=== PATIENT | male | born 2000 | race Caucasian/White ===

== ENCOUNTER 2020-01-17 19:16 | Inpatient (IN) | payer BC, MEDICAID, SELFPAY ==
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
[2020-01-17 19:31] VITALS: BP 119/62; PULSE 100; RESP 20; TEMP 36.7; O2SAT 99
[2020-01-17] MEDS: diphenhydrAMINE 50 MG/ML VIAL 25 MG IVP (20:00)
[2020-01-17] MEDS: Haloperidol 5 MG/ML VIAL 4 MG IM (20:00)
[2020-01-17] MEDS: Midazolam 2 MG/2 ML VIAL IVP (20:01)
[2020-01-17 20:04] LABS: Absolute Basophil Count 0.01 k/cumm (0.0-0.2); Absolute Eosinophil Count 0.14 k/cumm (0.0-0.7); Absolute Lymphocyte Count 1.29 k/cumm (1.2-3.4); Absolute Monocyte Count 0.36 k/cumm (0.11-0.7); Basophils % 0.2; Eosinophils % 2.7; HCT 43.5 % (40.0-50.0); HGB 14.9 g/dL (13.5-17.5); Lymphocytes % 24.8; Mean Corp. HGB Concentration 34.3 g/dL (32.0-36.0); Mean Corpuscular Volume 87.5 fL (80-95); Mean Platelet Volume 9.7 fL (8.0-11.0); Monocytes % 6.9; Neutrophils % 65.4; Platelet Count 174 x1000/uL (130-400); RBC 4.97 m/cumm (4.50-6.00); RBC Distribution Width 11.6 % (11.8-14.1)
--- NOTE | 2020-01-17 20:13 | DI.CT_ITS ---
EXAM: CT HEAD WO CLINICAL HISTORY: altered mentation. TECHNIQUE: Imaging Protocol: Axial computed tomography images with coronal and sagittal reformatted images were created and reviewed COMPARISON: No exams were available for comparison FINDINGS: The ventricular system is normal in appearance. No evidence of acute intracranial hemorrhage, mass effect, or midline shift. The orbital structures are unremarkable. The temporal bone structures appear intact. Calvarium: Normal. Visualized Paranasal sinuses/Mastoids: Clear. IMPRESSION: Normal cranial CT. RADIATION DOSE DELIVERED: Total DLP DATA REPOSITORY: All CT scans at this facility are submitted to the National Radiology Data Registry (NRDR) Dose Index Registry (DIR) with the [employer] (ACR). RADIATION OPTIMIZATION: All CT scans at this facility use at least one of these dose optimization te chniques: automated exposure control; mA and/or kV adjustment per patient size (includes targeted exa ms where dose is matched to clinical indication); or iterative reconstruction.
--- NOTE | 2020-01-17 20:15 | RT.EKG_ITS ---
APPROVED REPORT Exam: Resting ECG Patient Location: E HR:65 bpm ECG Measurements Heart Rate 65 AXIS VA 120 P 38 QRSd 85 QRS 76 QT 356 T 124 QTc 371 <Conclusion> Sinus rhythm...normal P axis, V-rate 60- 99 Nonspecific T abnormalities, lateral leads...T <-0.10mV, I aVL V5 V6 nondiagnostic
--- NOTE | 2020-01-17 20:22 | DI.VRAD_ITS ---
PROCEDURE INFORMATION: Exam: CT Head Without Contrast Exam date and time: 01/17/2020 7:22 PM Age: 20 years old Clinical indication: Other: Altered mentation TECHNIQUE: Imaging protocol: Computed tomography of the head without contrast. Radiation optimization: All CT scans at this facility use at least one of these dose optimization techniques: automated exposure control; mA and/or kV adjustment per patient size (includes targeted exams where dose is matched to clinical indication); or iterative reconstruction. COMPARISON: No relevant prior studies available. FINDINGS: Brain: Normal. No hemorrhage. Unremarkable white matter. No mass effect. Ventricles: Normal. No ventriculomegaly. Bones/joints: Unremarkable. No acute fracture. Sinuses: Visualized sinuses are unremarkable. No fluid levels. Mastoid air cells: Visualized mastoid air cells are well aerated. Soft tissues: Unremarkable. IMPRESSION: No evidence for acute intracranial abnormality . Dictated and Authenticated by: Kiara Castro MD. Ordering:BHAVANA Marinelli MD
--- NOTE | 2020-01-17 20:25 | PDOC.CMSAFED ---
- If Service Date Differs Date of service: 01/17/20 Time of Service: 20:25 Care Management Safety Plan Russell is a 20 year old male brought in by Connie presenting in a catatonic state per provider. Russell has a know history of violent behaviors, elopement and diagnosis with schizophrenia and poor compliance. 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 He currently is not receiving any services as an outpatient. Russell is involuntary at this time and is in the custody of department of mental health due to involuntary status. Safety plan has been established with the care team, to adhere to patient goals, identify restrictions based on behavioral status, address nutrition, and determine allowed personal belongings, tools for hygiene and personal care. Determine level of activity including ambulation, level of supervision, visitors, and determine privileges based on behaviors and level of engagement by pt. SAFETY PLAN: 1. Will remain on suicide precautions and in paper clothes. 2. Will remain in room under direct supervision of one-on-one staff at all times provided by CPSO, DRAW FRAME OPERATOR, OPTOELECTRONICS ENGINEER explosive operator supervisor. 3. May have paper cups, plates, finger foods as well as a cardboard spoon with which to eat meals. 4. Follow [facility] Management of the Admitted Behavioral Health Patient policy. 5. Comfort wipes only. 6. No personal belongings 7. Visitors: No visitors at this time. 8. Activities: Television if available and coloring and crayons at the discretion of the care team. 8. Telephone: No telephone privileges at this time. 9. Due to INVOLUNTARY status, Russell may not leave [facility] unless transferred to a psychiatric facility in the [facility]. Russell is in the custody of department of mental health due to involuntary status. If deemed appropriate for inpatient psychiatric care, safety plan will be established with patient, and care team, to adhere to patient goals, identify restrictions based on behavioral status, address nutrition, and determine allowed personal belongings, tools for hygiene and personal care. As well plan will determine level of activity including ambulation, level of supervision, visitors, and determine privileges based on level of acuity, behaviors and level of engagement by patient.
[2020-01-17 20:28] VITALS: BP 145/75; TEMP 36.7
[2020-01-17 20:31] LABS: ALT 20 U/L (16-63); AST 11 U/L (15-37); Albumin 3.9 g/dL (3.4-5.0); Alkaline Phosphatase 87 U/L (46-116); Anion Gap 10.2 mmol/L (3-11); BUN 13 mg/dL (7-18); Bilirubin, Total 0.9 mg/dL (0.2-1.0); CO2 26.8 mmol/L (21.0-32.0); CREATININE 1.18 mg/dL (0.70-1.30); Calcium 9.1 mg/dL (8.5-10.1); Chloride 103 mmol/L (98-107); Creatine Kinase 45 U/L (39-308); Glucose 97 mg/dL (74-106); Potassium 3.5 mmol/L (3.5-5.1); Sodium 140 mmol/L (136-145); TSH (W/Ref FT4) 0.96 uIU/mL (0.36-3.74); Total Protein 7.2 g/dL (6.4-8.2)
[2020-01-17 20:34] LABS: Troponin I < 0.05 ng/mL (<0.06)
[2020-01-17 21:05] LABS: ETHANOL BLOOD < 3.0 mg/dL (<3)
[2020-01-17 21:10] VITALS: BP 121/73; PULSE 69; PULSE 74; RESP 20; O2SAT 99
[2020-01-17 21:34] LABS: Bilirubin Small (Negative); Blood Negative (Negative); Clarity Clear (Clear); Glucose Negative (Negative); Ketones 40 mg/dL (Negative); Leukocyte Esterase Negative (Negative); Nitrite Negative (Negative); Specific Gravity >= 1.030 (1.005-1.025)
[2020-01-17] MEDS: DEXTROSE 5%-0.45% SALINE 1,000 ML 150 ML IV (21:45)
[2020-01-17 22:00] VITALS: BP 121/73; PULSE 74; RESP 20; TEMP 36.7
[2020-01-17 22:04] LABS: *AMPHETAMINES SCREEN URINE Negative (Negative); *BARBITURATES SCREEN URINE Negative (Negative); *BENZODIAZEPINES SCREEN URINE POSITIVE (Negative); Cannabinoids THC POSITIVE (Negative); Cocaine Screen,Urine Negative (Negative); METHADONE URINE SCREEN Negative (Negative); OPIATES URINE SCREEN Negative (Negative)
[2020-01-17 22:05] LABS: Tricyclic Antidepressants Negative (Negative)
[2020-01-17 23:00] VITALS: BP 121/73; PULSE 74; RESP 20; TEMP 36.7
--- NOTE | 2020-01-18 08:15 | NUR.NOTE ---
Nursing Note:- Food order per patient requested
--- NOTE | 2020-01-18 10:41 | NUR.NOTE ---
S[place]mill Moulder Operator spoke with patients mother on the phone who is on HIPAA consent she states patient has not been on any medications x 2 years. Lives alone and family brings him meals. Mother states he cannot care for himself.
--- NOTE | 2020-01-18 11:51 | NUR.NOTE ---
Patient now has CPSO
[2020-01-18 12:00] VITALS: BP 121/73; PULSE 74; RESP 20; TEMP 36.7
[2020-01-18 13:37] LABS: COVID-19 RT-PCR UVMMC Result Negative (Negative)
--- NOTE | 2020-01-18 14:55 | PDOC.MHCN ---
Date of service: 01/18/20 Time of Service: 14:30 Mental Health Crisis Note Presenting Issue How did you arrive at the ED and why did you come: Clt came in via MH Warrant for MH eval. Precipitating Factors Clt denies any SI or HI but clt came in because he was not meeting minimum health requirements by not drinking enough water and eating food. Clt has lost a substantial amount of weight. He has been barricading himself in his trailer. Clt minimized his behavior throughout the discussion. Disposition BEHAVIOR: Guarded EYE CONTACT: intermittent MOOD: Pleasant AFFECT: Liable APPETITE: Poor SLEEP(trouble falling/staying asleep: Yes inidividuleigh has been sleeping for long periods of time. Plan The plan is to have the second certification substantiated and placed in a secure psychiatric unit to help cljamie deal with his mental health crisis.
--- NOTE | 2020-01-18 15:12 | CMSP_ITS ---
- If Service Date Differs Date of service: 01/18/20 Time of Service: 15:12 Care Management Safety Plan Russell remains at [facility], awaiting an involuntary psychiatric placement. Thus far today, he has been calm and cooperative. When CM comes to meet with him, he greets me with Hi. My name is Russell Mejia. He answers some questions asked of him, but at other times he just blankly stares and does not reply. He reports doing well and is appreciative of CM explaining the EE process to him. Russell was evaluated by [facility] screener, earlier today. He engaged in the evaluation, but his behavior was described as guarded. A Second Certification by Psychiatrist will occur at some point this evening. At this time, there have been no bed offers. Safety plan has been established with the care team, to adhere to patient goals, identify restrictions based on behavioral status, address nutrition, and determine allowed personal belongings, tools for hygiene and personal care. Determine level of activity including ambulation, level of supervision, visitors, and determine privileges based on behaviors and level of engagement by pt. SAFETY PLAN: 1. Will remain on suicide precautions and in paper clothes. 2. Will remain in room under direct supervision of one-on-one staff at all times provided by CPSO, DISTRICT COURT BAILIFF, COMMUNITY COORDINATOR computer aided design operator. 3. May have paper cups, plates, finger foods as well as a cardboard spoon with which to eat meals. 4. Follow [facility] Management of the Admitted Behavioral Health Patient policy. 5. Comfort wipes only. 6. No personal belongings 7. Visitors: No visitors at this time. 8. Activities: Television if available and coloring and crayons at the discretion of the care team. 8. Telephone: No telephone privileges at this time. 9. Due to INVOLUNTARY status, Russell may not leave [facility] unless transferred to a psychiatric facility in the [facility]. Russell is in the custody of department of mental health due to involuntary status. If deemed appropriate for inpatient psychiatric care, safety plan will be established with patient, and care team, to adhere to patient goals, identify restrictions based on behavioral status, address nutrition, and determine allowed personal belongings, tools for hygiene and personal care. As well plan will determine level of activity including ambulation, level of supervision, visitors, and determine privileges based on level of acuity, behaviors and level of engagement by patient.
[2020-01-18 17:47] VITALS: BP 115/72; PULSE 122; RESP 16; TEMP 37.1; O2SAT 95
[2020-01-18 17:58] VITALS: PULSE 90
--- NOTE | 2020-01-18 20:35 | CMPROGNOTE_ITS ---
- If Service Date Differs Date of service: 01/18/20 Time of Service: 20:35 Care Management Progress Note Russell was interviewed by Dr. Minoo Wang via video call. CM also participated in the call. Dr. Wang determined that Russell should remain in involuntary status and approved the second certification. Russell stated that he did not feel that he needed to be hospitalized and that as an adult, he was able to care for himself. He will remain at [facility] in involuntary status until placement in a psychiatric facility can be secured.
--- NOTE | 2020-01-18 21:10 | PDOC.MHCN ---
Date of service: 01/18/20 Time of Service: 21:13 Mental Health Crisis Note Presenting Issue How did you arrive at the ED and why did you come:
[2020-01-19 06:30] VITALS: BP 120/83; PULSE 98; RESP 16; TEMP 36.6; O2SAT 97
--- NOTE | 2020-01-19 06:43 | NUR.NOTE ---
Pt up to BR, changed into new paper scrubs, non-skid socks. Bed linens changed. Provided with regine gaines. alert, appropriate, calm with staff.
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
--- NOTE | 2020-01-19 14:59 | PDOC.MHCN ---
Date of service: 01/19/20 Time of Service: 14:00 Mental Health Crisis Note Presenting Issue How did you arrive at the ED and why did you come: Client came in via MH Warrant for MH eval. Precipitating Factors This screener assessed the client via zoom this afternoon. The client was somewhat reluctant to engage. When asked if he was feeling suicidal he could not give a straightforward answer. Denied HI. When asked where his thoughts were at today he replied 'nowhere'. He shared he had dreamt about toads last night. He said it was 'a psychedelic dream'. When asked if he was feeling resistant to engage he responded with a nonsensical answer. Disposition BEHAVIOR: Appropriate EYE CONTACT: Good MOOD: Apathetic AFFECT: Animated but smug APPETITE: N/A SLEEP(trouble falling/staying asleep: Slept well--dreamt about toads. Plan Client will remain on involuntary status. Sabrnia Wei [facility] to continue follow up with hospitals and placement. Signature Clinician's Name/Title: Betito Chacon BA (Ana) [facility]
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
[2020-01-19 17:01] VITALS: BP 122/95; PULSE 108; RESP 15; TEMP 37; O2SAT 98
[2020-01-19 18:15] VITALS: BP 107/74; PULSE 111; RESP 16; TEMP 36.5; O2SAT 98
--- NOTE | 2020-01-19 18:52 | PDOC.CMSAFE ---
- If Service Date Differs Date of service: 01/19/20 Time of Service: 18:52 Care Management Safety Plan INVOLUNTARY FOR INPATIENT PSYCHIATRIC STABILIZATION. Safety plan has been established to meet the needs of the patient, and consideration of the care team, to adhere to patient goals, identify restrictions based on behavioral status, address nutrition, and determine allowed personal belongings, tools for hygiene and personal care. Determine level of activity including ambulation, level of supervision, visitors, and determine privileges based on behaviors and level of engagement by pt. SAFETY PLAN: 1. Will remain on SI/HI precautions. In Paper Clothes 2. Will remain in room under direct supervision of one-on-one staff at all times provided by CPSO; AMERICA, CLOTH BLEACHING RANGE TENDER harvesting contractor. 3. May have paper cups, plates, finger foods as well as a cardboard spoon 4. Follow [facility] Management of the Admitted Behavioral Health Patient policy. 5. Comfort bath system only. 6. No personal belongings 7. Visitors-none at this time 8. Activities: may watch tv, crayons, coloring book, paper, books 9. Bathroom privileges with supervision 10. Phone: None at this time 11. Due to INVOLUNTARY status, if patient wishes to leave [facility], the [facility] transportation maintenance worker must be contacted to re-evaluate patient prior to patient exiting the building. Patient is currently involuntarily at [facility] and seeking inpatient admission when a bed becomes available. [facility] Frontline Sausage Wrapper will continue seeking placement. Please contact the [employer] Professor Plisse Machine Operator Helper ([phone]) and [facility] Sausage Wrapper ([phone]) for any needed changes in the Safety Plan. Safety plan [facility] been provided [facility]
--- NOTE | 2020-01-19 18:55 | CMPROGNOTE_ITS ---
- If Service Date Differs Date of service: 01/19/20 Time of Service: 18:55 Care Management Progress Note S/O: Russell is a 20 year old young man admitted to [facility] after being found by police to be in a state of self neglect. His home was unkept, there was no food supply evident and Russell had not been outside his home in some time, as far as it could be determined. He has a history of schizophrenia and has had community support and resources in the past but has not been compliant with his care and has not been connected with any mental health services for over a year. Per Russell, it may be longer than that. Today Russell was cooperative but minimally engaged. When Sabrina Wilde, [facility] screener met with him, he refused to answer any of her questions. The only slight response was a smirk when she asked him if he had homicidal thoughts. Later Russell was screened by an [facility] QMHP, Betito. This time he engaged a bit more and answered questions. Denied SI or HI. When asked to describe how he was feeling, he said, like broken glass, then like melted candle wax. Russell did not eat any breakfast ot lunch today and drank very little. The ED staff encouraged him to drink more fluids. Per report, Russell has lost weight recently and has not been eating. Updated information was sent to [facility] today, including his Covid test results. Russell is involuntary at this time and is in the custody of department of mental health due to involuntary status. Safety plan has been established with the care team, to adhere to patient goals, identify restrictions based on behavioral status, address nutrition, and determine allowed personal belongings, tools for hygiene and personal care. Determine level of activity including ambulation, level of supervision, visitors, and determine privileges based on behaviors and level of engagement by pt. SAFETY PLAN: 1. Will remain on suicide precautions and in paper clothes. 2. Will remain in room under direct supervision of one-on-one staff at all times provided by CPSO, AMERICA, CLINICAL CARE COORDINATOR commercial field inspector. 3. May have paper cups, plates, finger foods as well as a cardboard spoon with which to eat meals. 4. Follow [facility] Management of the Admitted Behavioral Health Patient policy. 5. Comfort wipes only. 6. No personal belongings 7. Visitors: No visitors at this time. 8. Activities: Television if available and coloring and crayons at the discretion of the care team. 8. Telephone: No telephone privileges at this time. 9. Due to INVOLUNTARY status, Russell may not leave [facility] unless transferred to a psychiatric facility in the [facility]. Russell is in the custody of department of mental health due to involuntary status.
[2020-01-19] MEDS: QUEtiapine 25 MG TAB PO (21:21)
[2020-01-19] MEDS: diphenhydrAMINE 25 MG CAP PO (21:21)
[2020-01-20] MEDS: QUEtiapine 25 MG TAB PO ×3 (11:56→23:00)
--- NOTE | 2020-01-20 13:30 | W.PM.PROGNOT ---
Date of Service Date of service: 01/20/20 Time of Service: 13:30 Assessment and Plan Assessment and plan (1) Acute psychosis: Start date: 01/20/20 Start time: 13:34 Status: Acute Assessment and plan: cooperative overnight. No outbursts. Prefers bed be on floor. Coloring. When asked what he is going to do with the pictures he states burn them. Then continues to color. 1:1 observer with patient. Awaiting psych bed at facility CM arranging. (2) Schizophrenia: Status: Acute Assessment and plan: See above. Above case discussed with Dr. Alfred who is in agreement. Subjective Subjective Patient reports: no new complaints Interval history since last seen: Coloring in room. Standing at window. Drinking from cup. Does not make eye contact. Does not answer direct questions. Exam Const General: no acute distress and other (dishelveled) Nutritional Appearance: thin Orientation: other Resp Effort & Inspection: normal respiratory effort and able to speak in complete sentences Auscultation: clear to auscultation bilaterally Cardio Rate: regular rate GI Inspection: normal to inspection Palpation: soft Auscultation: normal bowel sounds Psych Appearance: disheveled Mental Status: other Mood: other Affect: labile affect Attitude: avoids eye contact Thought Process: other Thought Content: ideas of reference Insight: fair Judgment: fair Objective Objective Clinical Data: Vital Signs Temperature 36.5 C 01/19/20 18:15 Temperature Source Tympanic 01/19/20 18:15 Pulse 111 H 01/19/20 18:15 Pulse Rhythm Regular 01/19/20 17:55 Pulse 69 01/17/20 21:10 Respiratory Rate 16 01/19/20 18:15 Respiratory Effort Non-Labored 01/19/20 17:55 Respiratory Depth Normal 01/19/20 17:55 Respiratory Pattern Normal 01/19/20 17:55 Blood Pressure 107/74 01/19/20 18:15 Blood Pressure Mean 84 01/17/20 21:10 Blood Pressure Position Supine 01/17/20 19:31 Pulse Oximetry 98 01/19/20 18:15 Oxygen Delivery Method Room Air 01/19/20 18:15 Oxygen Flow Rate 0 01/19/20 18:15 Pain Level 0 01/19/20 18:15 Comment 01/20/20 01:24 Laboratory Results WBC 5.20 k/cumm (4.4-10.8) 01/17/20 19:52 RBC 4.97 m/cumm (4.50-6.00) 01/17/20 19:52 Hgb 14.9 g/dL (13.5-17.5) 01/17/20 19:52 Hct 43.5 % (40.0-50.0) 01/17/20 19:52 MCV 87.5 fL (80-95) 01/17/20 19:52 MCH 30.0 pg (27.0-33.0) 01/17/20 19:52 MCHC 34.3 g/dL (32.0-36.0) 01/17/20 19:52 RDW 11.6 % (11.8-14.1) L 01/17/20 19:52 Plt Count 174 x1000/uL (130-400) 01/17/20 19:52 MPV 9.7 fL (8.0-11.0) 01/17/20 19:52 Immature Gran % 0.0 % 01/17/20 19:52 Neutrophils % 65.4 01/17/20 19:52 Lymphocytes % 24.8 01/17/20 19:52 Monocytes % 6.9 01/17/20 19:52 Eosinophils % 2.7 01/17/20 19:52 Basophils % 0.2 01/17/20 19:52 Absolute Neutrophils 3.40 k/cumm (1.2-6.7) 01/17/20 19:52 Absolute Lymphocytes 1.29 k/cumm (1.2-3.4) 01/17/20 19:52 Absolute Monocytes 0.36 k/cumm (0.11-0.7) 01/17/20 19:52 Absolute Eosinophils 0.14 k/cumm (0.0-0.7) 01/17/20 19:52 Absolute Basophils 0.01 k/cumm (0.0-0.2) 01/17/20 19:52 Sodium 140 mmol/L (136-145) 01/17/20 19:52 Potassium 3.5 mmol/L (3.5-5.1) 01/17/20 19:52 Chloride 103 mmol/L (98-107) 01/17/20 19:52 Carbon Dioxide 26.8 mmol/L (21.0-32.0) 01/17/20 19:52 Anion Gap 10.2 mmol/L (3-11) 01/17/20 19:52 BUN 13 mg/dL (7-18) 01/17/20 19:52 Creatinine 1.18 mg/dL (0.70-1.30) 01/17/20 19:52 Estimated GFR/1.73 m2 >= 60.00 (mL/min/1.73m2) 01/17/20 19:52 Glucose 97 mg/dL (74-106) 01/17/20 19:52 Calcium 9.1 mg/dL (8.5-10.1) 01/17/20 19:52 Total Bilirubin 0.9 mg/dL (0.2-1.0) 01/17/20 19:52 AST 11 U/L (15-37) L 01/17/20 19:52 ALT 20 U/L (16-63) 01/17/20 19:52 Alkaline Phosphatase 87 U/L (46-116) 01/17/20 19:52 Creatine Kinase 45 U/L (39-308) 01/17/20 19:52 Troponin I < 0.05 ng/mL (<0.06) 01/17/20 19:52 Total Protein 7.2 g/dL (6.4-8.2) 01/17/20 19:52 Albumin 3.9 g/dL (3.4-5.0) 01/17/20 19:52 TSH 0.96 uIU/mL (0.36-3.74) 01/17/20 19:52 Urine Color Yellow (Yellow) 01/17/20 21:25 Urine Clarity Clear (Clear) 01/17/20 21:25 Urine pH 6.0 (5-8) 01/17/20 21:25 Ur Specific [place] >= 1.030 (1.005-1.025) H 01/17/20 21:25 Urine Protein Negative mg/dL (Negative) 01/17/20 21:25 Urine Ketones 40 mg/dL (Negative) H 01/17/20 21:25 Urine Blood Negative (Negative) 01/17/20 21:25 Urine Nitrite Negative (Negative) 01/17/20 21:25 Urine Bilirubin Small (Negative) H 01/17/20 21:25 Urine Urobilinogen 1.0 EU/dL (Up TO 0.2) H 01/17/20 21:25 Ur Leukocyte Esterase Negative (Negative) 01/17/20 21:25 Urine Glucose Negative mg/dL (Negative) 01/17/20 21:25 Urine Opiates Screen Negative (Negative) 01/17/20 21:25 Urine Methadone Screen Negative (Negative) 01/17/20 21:25 Ur Barbiturates Screen Negative (Negative) 01/17/20 21:25 Ur Tricyclics Screen Negative (Negative) 01/17/20 21:25 Ur Amphetamines Screen Negative (Negative) 01/17/20 21:25 U Benzodiazepines Scrn Positive (Negative) A 01/17/20 21:25 Urine Cocaine Screen Negative (Negative) 01/17/20 21:25 Ur THC Screen Positive (Negative) A 01/17/20 21:25 Ethyl Alcohol < 3.0 mg/dL (<3) 01/17/20 19:52 COVID-19 PCR Negative (Negative) 01/17/20 22:40 Nasopharyn COVID-19 PCR Not Applicable 01/17/20 22:40 Ref Test Perform Site [facility] lab 01/17/20 22:40
--- NOTE | 2020-01-20 14:16 | PDOC.MHCN_ITS ---
Date of service: 01/20/20 Time of Service: 13:25 Mental Health Crisis Note Presenting Issue How did you arrive at the ED and why did you come: Client came in via [facility] for MH eval. Precipitating Factors This screener assessed the client via zoom. The client was in his room drawing on the register near the window when the conversation started. He said he was drawing chairs and couches. When asked if he was suicidal or homicidal he said he wanted to sit on a couch and enjoy the view out of his window. When the question was rephrased as 'do you feel like hurting yourself or anyone else?' he responded, 'I might step on an ant if I saw one but that's about it.' He mentioned feeling physically 'weird'. He mentioned he had taken medication and it was the first time in a 'long, long, long, long, long, long, long, long, long, long, long time'. When asked what home was like before he was in the hospital he said that it was 'radical' He said what made it radical was being able 'F around' and chryslers'. Very nonsensical at times. Appeared mentally distracted and unable to appropriately engage. Disposition BEHAVIOR: Client appeared distracted, standing at window drawing pictures. EYE CONTACT: Poor MOOD: Pleasant AFFECT: animated, smug APPETITE: It was reported to this screener he ate last night. SLEEP(trouble falling/staying asleep: Unknown, unclear answer from client. Plan Client will remain on involuntary status. MASSIMO Zaldivar [facility] to continue follow up with hospitals and placement. Signature Clinician's Name/Title: Betito Chacon BA (Ana) [facility]
--- NOTE | 2020-01-20 17:59 | PDOC.CMPRO ---
- If Service Date Differs Date of service: 01/20/20 Time of Service: 17:59 Care Management Progress Note S/O: Russell is a 20 year old young man admitted to [facility] after being found by police to be in a state of self neglect. His home was unkept, there was no food supply evident and Russell had not been outside his home in some time, as far as it could be determined. He has a history of schizophrenia and has had community support and resources in the past but has not been compliant with his care and has not been connected with any mental health services for over a year. Per Russell, it may be longer than that. Today Russell was cooperative but minimally engaged. When screened by an [facility], Betito (via Zoom), he was responsive to questions asked and maintained some degree of eye contact, although at times his eyes shifted off into space as though he were being distracted. He essentially denied SI/HI but admitted he might step on an ant. Unlike yesterday, today Russell was up and about in his room. He was standing and drawing and coloring pictures on the windowsill when CM and QMHP entered the room. He had done at least 5 pictures prior to the visit. Per report, Russell ate 2 sandwiches for dinner last night and his liquid intake has improved as well. A referral was sent to [facility] today, however they declined the referral stating that it did not look like a good fit at this time. [facility] did not have the ability to accept an involuntary admission. Russell will remain at [facility] in involuntary status at this time in the custody of Department of Mental Health.. Safety plan has been established with the care team, to adhere to patient goals, identify restrictions based on behavioral status, address nutrition, and determine allowed personal belongings, tools for hygiene and personal care. Determine level of activity including ambulation, level of supervision, visitors, and determine privileges based on behaviors and level of engagement by ptIsacc Morgan held with USAMA Jones, [facility] Bet[facility], nurse Nieves. SAFETY PLAN: 1. Will remain on suicide precautions and in paper clothes. 2. Will remain in room under direct supervision of one-on-one staff at all times provided by CPSO, AUTOMATIC FOLDER SEAMER, CARTON GLUING MACHINE OPERATOR tailings dam laborer. 3. May have paper cups, plates, finger foods as well as a cardboard spoon with which to eat meals. 4. Follow [facility] Management of the Admitted Behavioral Health Patient policy. 5. May shower with close supervision. 6. No personal belongings 7. Visitors: No visitors at this time. 8. Activities: Television if available and coloring book, paper and crayons at the discretion of the care team. 8. Telephone: No telephone privileges at this time. 9. Due to INVOLUNTARY status, Russell may not leave [facility] unless transferred to a psychiatric facility in the [facility]. Russlel is in the custody of department of mental health due to involuntary status.
--- NOTE | 2020-01-20 18:12 | PDOC.CMSAFE ---
- If Service Date Differs Date of service: 01/20/20 Time of Service: 18:12 Care Management Safety Plan Safety plan has been established with the care team, to adhere to patient goals, identify restrictions based on behavioral status, address nutrition, and determine allowed personal belongings, tools for hygiene and personal care. Determine level of activity including ambulation, level of supervision, visitors, and determine privileges based on behaviors and level of engagement by pt. Huddle held with CC Martita, USAMA Huitron, [facility] Betito, nurse Nieves. SAFETY PLAN: 1. Will remain on suicide precautions and in paper clothes. 2. Will remain in room under direct supervision of one-on-one staff at all times provided by CPSO, SEAT COVER CUTTER, INDUSTRIAL/ORGANIZATIONAL PSYCHOLOGIST family service caseworker. 3. May have paper cups, plates, finger foods as well as a cardboard spoon with which to eat meals. 4. Follow [facility] Management of the Admitted Behavioral Health Patient policy. 5. May shower with close supervision. 6. No personal belongings 7. Visitors: No visitors at this time. 8. Activities: Television if available and coloring book, paper and crayons at the discretion of the care team. 8. Telephone: No telephone privileges at this time. 9. Due to INVOLUNTARY status, Russell may not leave [facility] unless transferred to a psychiatric facility in the [facility]. Russell is in the custody of department of mental health due to involuntary status. cc:
[2020-01-20] MEDS: diphenhydrAMINE 25 MG CAP PO (23:00)
--- NOTE | 2020-01-21 08:44 | PDOC.CMSAFE ---
- If Service Date Differs Date of service: 01/21/20 Time of Service: 08:44 Care Management Safety Plan Safety plan has been established with the care team, to adhere to patient goals, identify restrictions based on behavioral status, address nutrition, and determine allowed personal belongings, tools for hygiene and personal care. Determine level of activity including ambulation, level of supervision, visitors, and determine privileges based on behaviors and level of engagement by pt. Huddle: [facility] QMHP, CCRN, provider and primary RN. No changes in the plan today bed update, referrals pending at [facility], and [facility]. SAFETY PLAN: 1. Will remain on suicide precautions and in paper clothes. 2. Will remain in room under direct supervision of one-on-one staff at all times provided by CPSO, AMERICA, SMALL ARMS ARTILLERY REPAIRER behavioral health care manager. 3. May have paper cups, plates, finger foods as well as a cardboard spoon with which to eat meals. 4. Follow [facility] Management of the Admitted Behavioral Health Patient policy. 5. May shower with close supervision. 6. No personal belongings 7. Visitors: No visitors at this time. 8. Activities: Television if available and coloring book, paper and crayons at the discretion of the care team. 8. Telephone: No telephone privileges at this time. 9. Due to INVOLUNTARY status, Russell may not leave [facility] unless transferred to a psychiatric facility in the [facility]. Russell is in the custody of department of mental health due to involuntary status.
[2020-01-21] MEDS: QUEtiapine 25 MG TAB PO ×3 (09:30→20:34)
--- NOTE | 2020-01-21 12:09 | PGE_ITS ---
Date of Service Date of service: 01/21/20 Time of Service: 12:09 Assessment and Plan Assessment and plan (1) Acute psychosis: Start date: 01/21/20 Start time: 12:10 Status: Acute Assessment and plan: Refusing exam and to answer questions did say you are in my personal space. No outbursts overnight. Prefers bed be on floor. Lying on bed on floor 1:1 observer with patient. Awaiting psych bed at facility CM arranging. (2) Schizophrenia: Start date: 01/21/20 Start time: 12:11 Status: Acute Assessment and plan: See above. Above case discussed with Dr. Alfred who is in agreement. Subjective Subjective Interval history since last seen: Lying on bed on floor refusing to cooperate, stating you are in my personal space. Left room at patient direction Exam Narrative Exam Narrative: Refused examination. Did appear to be breathing without any labor. Speaking complete sentences, he was covered in blanket therefore not able to visualize skin. He did not appear to be in any stress. Objective Objective Clinical Data: Vital Signs Temperature 36.5 C 01/19/20 18:15 Temperature Source Tympanic 01/19/20 18:15 Pulse 111 H 01/19/20 18:15 Pulse Rhythm Regular 01/20/20 22:40 Pulse 69 01/17/20 21:10 Respiratory Rate 16 01/19/20 18:15 Respiratory Effort Non-Labored 01/20/20 22:40 Respiratory Depth Normal 01/20/20 22:40 Respiratory Pattern Normal 01/20/20 22:40 Blood Pressure 107/74 01/19/20 18:15 Blood Pressure Mean 84 01/17/20 21:10 Blood Pressure Position Supine 01/17/20 19:31 Pulse Oximetry 98 01/19/20 18:15 Oxygen Delivery Method Room Air 01/19/20 18:15 Oxygen Flow Rate 0 01/19/20 18:15 Pain Level 0 01/19/20 18:15 Comment 01/20/20 22:51 Intake & Output 01/20/20 01/21/20 01/21/20 23:59 11:59 23:59 Other: Urine Appearance Clear Comment voided independently in toilet independant Stool Occult Blood Negative Stool Size Large Stool Characteristics Liquid Mucoid Brown Voiding Methods Toilet Laboratory Results WBC 5.20 k/cumm (4.4-10.8) 01/17/20 19:52 RBC 4.97 m/cumm (4.50-6.00) 01/17/20 19:52 Hgb 14.9 g/dL (13.5-17.5) 01/17/20 19:52 Hct 43.5 % (40.0-50.0) 01/17/20 19:52 MCV 87.5 fL (80-95) 01/17/20 19:52 MCH 30.0 pg (27.0-33.0) 01/17/20 19:52 MCHC 34.3 g/dL (32.0-36.0) 01/17/20 19:52 RDW 11.6 % (11.8-14.1) L 01/17/20 19:52 Plt Count 174 x1000/uL (130-400) 01/17/20 19:52 MPV 9.7 fL (8.0-11.0) 01/17/20 19:52 Immature Gran % 0.0 % 01/17/20 19:52 Neutrophils % 65.4 01/17/20 19:52 Lymphocytes % 24.8 01/17/20 19:52 Monocytes % 6.9 01/17/20 19:52 Eosinophils % 2.7 01/17/20 19:52 Basophils % 0.2 01/17/20 19:52 Absolute Neutrophils 3.40 k/cumm (1.2-6.7) 01/17/20 19:52 Absolute Lymphocytes 1.29 k/cumm (1.2-3.4) 01/17/20 19:52 Absolute Monocytes 0.36 k/cumm (0.11-0.7) 01/17/20 19:52 Absolute Eosinophils 0.14 k/cumm (0.0-0.7) 01/17/20 19:52 Absolute Basophils 0.01 k/cumm (0.0-0.2) 01/17/20 19:52 Sodium 140 mmol/L (136-145) 01/17/20 19:52 Potassium 3.5 mmol/L (3.5-5.1) 01/17/20 19:52 Chloride 103 mmol/L (98-107) 01/17/20 19:52 Carbon Dioxide 26.8 mmol/L (21.0-32.0) 01/17/20 19:52 Anion Gap 10.2 mmol/L (3-11) 01/17/20 19:52 BUN 13 mg/dL (7-18) 01/17/20 19:52 Creatinine 1.18 mg/dL (0.70-1.30) 01/17/20 19:52 Estimated GFR/1.73 m2 >= 60.00 (mL/min/1.73m2) 01/17/20 19:52 Glucose 97 mg/dL (74-106) 01/17/20 19:52 Calcium 9.1 mg/dL (8.5-10.1) 01/17/20 19:52 Total Bilirubin 0.9 mg/dL (0.2-1.0) 01/17/20 19:52 AST 11 U/L (15-37) L 01/17/20 19:52 ALT 20 U/L (16-63) 01/17/20 19:52 Alkaline Phosphatase 87 U/L (46-116) 01/17/20 19:52 Creatine Kinase 45 U/L (39-308) 01/17/20 19:52 Troponin I < 0.05 ng/mL (<0.06) 01/17/20 19:52 Total Protein 7.2 g/dL (6.4-8.2) 01/17/20 19:52 Albumin 3.9 g/dL (3.4-5.0) 01/17/20 19:52 TSH 0.96 uIU/mL (0.36-3.74) 01/17/20 19:52 Urine Color Yellow (Yellow) 01/17/20 21:25 Urine Clarity Clear (Clear) 01/17/20 21:25 Urine pH 6.0 (5-8) 01/17/20 21:25 Ur Specific [place] >= 1.030 (1.005-1.025) H 01/17/20 21:25 Urine Protein Negative mg/dL (Negative) 01/17/20 21:25 Urine Ketones 40 mg/dL (Negative) H 01/17/20 21:25 Urine Blood Negative (Negative) 01/17/20 21:25 Urine Nitrite Negative (Negative) 01/17/20 21:25 Urine Bilirubin Small (Negative) H 01/17/20 21:25 Urine Urobilinogen 1.0 EU/dL (Up TO 0.2) H 01/17/20 21:25 Ur Leukocyte Esterase Negative (Negative) 01/17/20 21:25 Urine Glucose Negative mg/dL (Negative) 01/17/20 21:25 Urine Opiates Screen Negative (Negative) 01/17/20 21:25 Urine Methadone Screen Negative (Negative) 01/17/20 21:25 Ur Barbiturates Screen Negative (Negative) 01/17/20 21:25 Ur Tricyclics Screen Negative (Negative) 01/17/20 21:25 Ur Amphetamines Screen Negative (Negative) 01/17/20 21:25 U Benzodiazepines Scrn Positive (Negative) A 01/17/20 21:25 Urine Cocaine Screen Negative (Negative) 01/17/20 21:25 Ur THC Screen Positive (Negative) A 01/17/20 21:25 Ethyl Alcohol < 3.0 mg/dL (<3) 01/17/20 19:52 COVID-19 PCR Negative (Negative) 01/17/20 22:40 Nasopharyn COVID-19 PCR Not Applicable 01/17/20 22:40 Ref Test Perform Site [facility] 01/17/20 22:40
--- NOTE | 2020-01-21 12:45 | PDOC.MHCN ---
Date of service: 01/21/20 Time of Service: 11:30 Mental Health Crisis Note Presenting Issue How did you arrive at the ED and why did you come: Parish was in a second floor psych bed, dressed in standard paper cloths. The clt was only on mattress on the floor. He had a blankets around him. He had done some drawings with crayons. Precipitating Factors Parish was evasive regarding SI or HI. Hospital staff reported that he has been largely cooperative since moving from the ER. The clt was reported to have taken his Seroquel as directed. Disposition BEHAVIOR: Behavior was calm until I pressed about the trailer he destroyed. The clt then appeared to become agitated. EYE CONTACT: Clt's eye contact was poor. MOOD: guarded AFFECT: Somewhat flat APPETITE: Fair SLEEP(trouble falling/staying asleep: Sleep is poor Plan Clt keep saying Health is a bad word. In his drawings he sheng in a circular fashion, using words like darkness and chaos. He tried to state that health would cause severe disruption. He pointed to his picture and motion with his hands and said, Poof. I didn't like his evasiveness regarding SI or HI. Parish will stay under involuntary status awaiting placement in a secured psych facility.
--- NOTE | 2020-01-21 13:47 | CMPROGNOTE_ITS ---
- If Service Date Differs Date of service: 01/21/20 Time of Service: 13:47 Care Management Progress Note S/O: Russell is lying on the bed in the room when CM arrives he appears drowsy but remains calm. CM did review with the team and per report he took his medications and has been calm. He continues write on a piece of paper, no structure to the writing. [facility] QMHP presented in person to assess Russell. Huddle with CM, primary care team, including RN, RNCC, QMHP and provider. Referrals pending at [facility] [place] and [facility]. CM faxed updates to [facility] as requested. A: Russell is a 20 year old male admitted Involuntary with a history of schizophrenia, unsafe behaviors at home prior to admission. P: Russell is awaiting placement at a psychiatric facility, he remains involuntary at this time. He will transport via securities clerk coordinated by [facility] when bed is available.
[2020-01-21] MEDS: QUEtiapine 25 MG TAB 50 MG PO (21:47)
[2020-01-21] MEDS: diphenhydrAMINE 25 MG CAP PO (21:47)
[2020-01-22] MEDS: QUEtiapine 25 MG TAB 50 MG PO ×2 (00:59→22:20)
--- NOTE | 2020-01-22 08:02 | PDOC.CMSAFE ---
- If Service Date Differs Date of service: 01/22/20 Time of Service: 08:02 Care Management Safety Plan Safety plan has been established with the care team, to adhere to patient goals, identify restrictions based on behavioral status, address nutrition, and determine allowed personal belongings, tools for hygiene and personal care. Determine level of activity including ambulation, level of supervision, visitors, and determine privileges based on behaviors and level of engagement by pt. Progress Update - Russell is is lying on the floor this morning he is not engaging at this time. He would not engage with [facility] during ZOOM session he just laid on the floor blowing spit bubbles and making laughing sounds. He did refused his Seroquel however requested food from the nurse. Per report he was trying to get into the closest overnight and fell asleep on the floor with his head resting inside the open closet. Russell Legal representation did contact him over the phone Mac and he was provided a telephone to speak with financial advisor. CM [facility] updates, placement continues to be sought, [facility] states they may have a bed for Russell tomorrow after they have a discharge. updated the admission nurse with Russell's status. Anticipate [facility] on 01/23/20. To be transported down via sheriffs officer coordinated by [facility] and [facility]. SAFETY PLAN: 1. Will remain on suicide precautions and in paper clothes. 2. Will remain in room under direct supervision of one-on-one staff at all times provided by [employer], MANAGER ANALYTICAL, INSIDE SALES REPRESENTATIVE squirt machine operator. 3. May have paper cups, plates, finger foods as well as a cardboard spoon with which to eat meals. 4. Follow [facility] Management of the Admitted Behavioral Health Patient policy. 5. May shower with close supervision. 6. No personal belongings 7. Visitors: No visitors at this time. 8. Activities: Television if available and coloring book, paper and crayons at the discretion of the care team. 8. Telephone: No telephone privileges at this time. 9. Due to INVOLUNTARY status, Russell may not leave [facility] unless transferred to a psychiatric facility in the [facility]. Russell is in the custody of department of mental health due to involuntary status. Patient is currently involuntarily at [facility] and seeking inpatient admission when a bed becomes available. [facility] Frontline Manufacturing Electrician will continue seeking placement. Please contact the Clinical Account Executive Manager Of Drilling ([phone]) and [facility] Manufacturing Electrician ([phone]) for any needed changes in the Safety Plan. Safety plan has been provided to interdepartmental care team.
--- NOTE | 2020-01-22 13:41 | NUR.NOTE ---
Addendum entered by Wilmer De La Cruz 01/22/20 13:44: Left room patient not responding appropriately Original Note: Nursing Note: [facility] and Care management in room.
--- NOTE | 2020-01-22 14:23 | PDOC.MHCN_ITS ---
Date of service: 01/22/20 Time of Service: 13:45 Mental Health Crisis Note Presenting Issue How did you arrive at the ED and why did you come: Parish is on EE status in secured section of the hospital. Precipitating Factors Parish appears to have had a full psychotic break. Parish was reported to be kissing his room closet and lying inside it. During our brief meeting via zoom, the parish was on the floor and made his blanket appear like it was a straight-jacket on his upper body. He would answer questions by gurgling his own salvia making hehe noises. Parish either would not or could not response in an appropriate man ner because of his present mental condition. Disposition BEHAVIOR: Bizarre and uncooperative EYE CONTACT: No attempt at eye contact. MOOD: Liable AFFECT: Animated with inappropriate gurgling and laughter APPETITE: Fair SLEEP(trouble falling/staying asleep: Poor Plan Due to parish's behavior, he should stay involuntary at this time. Parish's condition appears to have worsen. Parish did refuse medications today.
[2020-01-22] MEDS: diphenhydrAMINE 25 MG CAP PO (22:20)
[2020-01-23] MEDS: diphenhydrAMINE 25 MG CAP PO (00:59)
--- NOTE | 2020-01-23 11:00 | CMSP_ITS ---
- If Service Date Differs Date of service: 01/23/20 Time of Service: 11:00 Care Management Safety Plan Safety plan has been established with the care team, to adhere to patient goals, identify restrictions based on behavioral status, address nutrition, and determine allowed personal belongings, tools for hygiene and personal care. Determine level of activity including ambulation, level of supervision, visitors, and determine privileges based on behaviors and level of engagement by pt. Progress Update - Russell appears to be sleeping at this time. Per report he was able to take his medication last evening without difficulty, he appears to be tolerable of the Seroquel. [facility] potentially has a bed for him this afternoon pending their discharge activity. CM did update the facility this morning and also reviewed with Department of Mental Health Case Management Debbie De Luna. SAFETY PLAN: 1. Will remain on suicide precautions and in paper clothes. 2. Will remain in room under direct supervision of one-on-one staff at all times provided by [employer], [employer], WATER METER MECHANIC industrial waste inspector. 3. May have paper cups, plates, finger foods as well as a cardboard spoon with which to eat meals. 4. Follow [facility] Management of the Admitted Behavioral Health Patient policy. 5. May shower with close supervision. 6. No personal belongings 7. Visitors: No visitors at this time. 8. Activities: Television if available and coloring book, paper and crayons at the discretion of the care team. 8. Telephone: No telephone privileges at this time. 9. Due to INVOLUNTARY status, Russell may not leave [facility] unless transferred to a psychiatric facility in the [facility]. Russell is in the custody of department of mental health due to involuntary status. Patient is currently involuntarily at [facility] and seeking inpatient admission when a bed becomes available. [facility] Frontline Squaring Machine Operator will continue seeking placement. Please contact the Disc Pad Grinding Machine Feeder Cake Tester ([phone]) and [facility] Squaring Machine Operator ([phone]) for any needed changes in the Safety Plan. Safety plan has been provided to interdepartmental care team.
[2020-01-23] MEDS: QUEtiapine 25 MG TAB PO ×2 (12:04→12:29)
--- NOTE | 2020-01-23 12:18 | W.PM.DS.N ---
Date of service: 01/23/20 Time of Service: 12:18 DS: Diagnosis Discharge Diagnosis (1) Acute psychosis: Status: Acute (2) Schizophrenia: Status: Acute Discharge Plan Disposition Patient Disposition: [facility] Condition: Stable Discharge Details Chief Complaint: PsychEval Clinical Impression: Schizophrenia, Acute psychosis Reason For Visit: PSYCH WITH SCHIZOPHRENIA Admit Date/Time: 01/19/20 09:10 Admit Provider: Latesha Alfred Attending Provider: Latesha Alfred Primary Care Provider: Walter Eng ED Provider: Yves Zapien Hospital Course Hospital Course: This is a 20 year old male with past medical history of schizophrenia and acute psychosis, sent by mental health presented to [facility] ED with law enforcement for concern of catatonic state. While in the ED he was aggressive toward staff with attempting to harm nurses. He eventually became cooperative he has been noncompliant with medications he received maintenance IVF. He tested positive for benzo's and THC in his urine. He has had a second cert and is now an EE. Medically cleared in the ED. He was admitted to med/surg while waiting for mental health placement. While on MedSurg he has been medically stable. There have been no behavioral disturbances but continues to remain psychotic.. Case management and mental health have been following and a bed has been obtained at [facility]. He will be transported by ground for inpatient psychiatric care. Home Meds and New Rx's Prescriptions: New quetiapine 25 mg Tablet 50 mg PO HS Qty: 0 RF: 0 quetiapine 25 mg Tablet 25 mg PO TID Qty: 0 RF: 0 diphenhydramine HCl 25 mg Capsule 25 mg PO HS Qty: 0 RF: 0 lorazepam 1 mg Tablet 1 mg PO QID PRN PRNQty: 0 RF: 0 Discharge Instructions Instructions: Psychotic Disorder (DC) Stand Alone Forms: Nursing Discharge Form Referrals: Walter Eng MD [Primary Care Provider] - (PCP once discharged from inpatient psychiatric care) Activity:: Activity as Tolerated Diet:: As Tolerated Discharge Data Discharge Date/Time-TO BE ENTERED AT DEPARTURE: 01/23/20 13:55 DS: Summary Status at Discharge Functional status at discharge: independent ambulation Overall status at discharge: patient is not back to baseline Mental Status: other (psychotic) Speech and Movement: speech and movement normal Mood: labile mood and other (psychotic) Affect: labile affect and blunted Exam Const General: cooperative and comfortable Nutritional Appearance: average body habitus Orientation: alert and awake Limitations: behavioral limitations HENMT Head: normal to inspection, normocephalic and atraumatic Mouth: oral mucosae normal Resp Effort & Inspection: normal respiratory effort Cardio Jugular venous pressure: other (pink warm dry and well perfused) GI Inspection: normal to inspection Neuro General: patient alert and patient awake Cognition: abnormal cognition Speech: speech normal Extrem General: normal to inspection, full ROM and no pedal edema Psych Mental Status: other (psychotic) Speech and Movement: speech and movement normal Mood: labile mood and other (psychotic) Affect: labile affect and blunted Attitude: refuses to answer Insight: poor Judgment: poor DS: Data Vitals/I&O Vitals and I&O: Vital Signs Temperature 36.5 C 01/19/20 18:15 Temperature Source Tympanic 01/19/20 18:15 Pulse 111 H 01/19/20 18:15 Pulse Rhythm Regular 01/20/20 22:40 Pulse 69 01/17/20 21:10 Respiratory Rate 16 01/19/20 18:15 Respiratory Effort Non-Labored 01/23/20 00:55 Respiratory Depth Normal 01/23/20 00:55 Respiratory Pattern Normal 01/23/20 00:55 Blood Pressure 107/74 01/19/20 18:15 Blood Pressure Mean 84 01/17/20 21:10 Blood Pressure Position Supine 01/17/20 19:31 Pulse Oximetry 98 01/19/20 18:15 Oxygen Delivery Method Room Air 01/19/20 18:15 Oxygen Flow Rate 0 01/19/20 18:15 Pain Level 0 01/19/20 18:15 Comment 01/22/20 00:00 [facility] Medical History Schizophrenia (Acute) Social History Smoking/Tobacco Use Status: Unknown Drug use: Daily Substance use type: unknown
--- NOTE | 2020-01-23 21:41 | CMDISCH_ITS ---
- If Service Date Differs Date of service: 01/23/20 Time of Service: 14:00 LACE Index Scoring Tool - Questions: Length of Stay (in days): 4 - 6 Acuity (Admit via E.D.?): Yes Care Management Discharge Reason for Hospitalization: Involuntary for psychiatric placement. Discharge Plan: Russell is being discharged to [facility]. CM contacted [facility] to coordinate transportation and discharge. CM contacted [facility] to confirm. Patient/Family Education Needs: Education related to transition. Services Needed at Discharge: Psychiatric Facility - MH Services (Omit if N/A) Current MH Services: Psychiatric Inp
== END 2020-01-23 13:55 | disposition short-term general hospital (02) | DRG 885 ==
LOC: ER 01-19 15:22 → MS 01-19 17:25
PROVIDERS: Admitting Provider Internal Medicine; Emergency Provider Student in an Organized Health Care Education/Training Program; PCP Pediatrics; Visit Provider Internal Medicine
DX: F20.2 Catatonic schizophrenia (principal); Z91.14 Patient's other noncompliance with medication regimen
CPT/HCPCS: 36415; 80053; 80307; 82550; 93005; 96361; 96372; 96374; 96375; 99220; 99233; 99239; 99285; U0003; 70450; 80320; 81003; 84443; 84484; 85025; 93010; 99225; 99281; 99284; G0378; J1200; J1630; J2250

== ENCOUNTER 2022-10-01 02:56 | Outpatient (CLI) | payer BC, MEDICAID, SELFPAY ==
[2022-10-01 08:52] LABS: ALT 74 U/L (16-63); AST 21 U/L (15-37); Albumin 3.9 g/dL (3.4-5.0); Alkaline Phosphatase 124 U/L (46-116); Anion Gap 6.9 mmol/L (3-11); BUN 15 mg/dL (7-18); Bilirubin, Total 0.3 mg/dL (0.2-1.0); CO2 30.1 mmol/L (21.0-32.0); CREATININE 1.1 mg/dL (0.70-1.30); Calcium 9.2 mg/dL (8.5-10.1); Calculated LDL 196 mg/dL (<100); Chloride 106 mmol/L (98-107); Cholesterol 277 mg/dL (<200); Estimated GFR 96.14 (mL/min/1.73m2); Glucose 113 mg/dL (74-106); HDL Cholesterol 36 mg/dL (40-60); Magnesium 2.3 mg/dL (1.8-2.4); Potassium 3.7 mmol/L (3.5-5.1); Sodium 143 mmol/L (136-145); TSH (W/Ref FT4) 2.69 uIU/mL (0.36-3.74); Total Protein 7.7 g/dL (6.4-8.2); Triglyceride 225 mg/dL (<150)
== END 2022-10-01 02:57 | disposition home or self-care (01) ==
LOC: LBO 02:58
PROVIDERS: PCP Student in an Organized Health Care Education/Training Program; Visit Provider Student in an Organized Health Care Education/Training Program
DX: E78.1 Pure hyperglyceridemia (principal); R73.9 Hyperglycemia, unspecified; F32.89 Other specified depressive episodes; I99.8 Other disorder of circulatory system; R89.2 Abnormal level of other drugs, medicaments and biological substances in specimens from other organs, systems and tissues
CPT/HCPCS: 36415; 80053; 80061; 83735; 84443

== ENCOUNTER 2023-08-03 04:44 | Outpatient (CLI) | payer BC, MEDICAID, SELFPAY ==
[2023-08-03 14:19] LABS: HGB 15.9 g/dL (13.5-17.5)
[2023-08-03 14:31] LABS: Anion Gap 5.1 mmol/L (3-11); BUN 16 mg/dL (7-18); CO2 29.9 mmol/L (21.0-32.0); CREATININE 1.1 mg/dL (0.70-1.30); Calcium 9.4 mg/dL (8.5-10.1); Chloride 107 mmol/L (98-107); Estimated GFR 95.54 (mL/min/1.73m2); Glucose 106 mg/dL (74-106); Potassium 4.3 mmol/L (3.5-5.1); Sodium 142 mmol/L (136-145)
[2023-08-03 14:42] LABS: Hemoglobin A1C 5.4 % (<5.7)
== END 2023-08-03 04:45 | disposition home or self-care (01) ==
LOC: LBO 04:44
PROVIDERS: Absent Provider Student in an Organized Health Care Education/Training Program; PCP Student in an Organized Health Care Education/Training Program; Referring Provider Student in an Organized Health Care Education/Training Program; Visit Provider Student in an Organized Health Care Education/Training Program
DX: R73.09 Other abnormal glucose (principal); E46 Unspecified protein-calorie malnutrition; Z79.899 Other long term (current) drug therapy
CPT/HCPCS: 36415; 80048; 83036; 85018